=== PATIENT | female | born 1985 | race Caucasian/White ===

== ENCOUNTER 2016-09-13 05:40 | Inpatient (IN) | payer MEDICAID ==
[~2016-09-13] VITALS: Ht 160 cm; Wt 89.8 kg
[2016-09-13] MEDS ORDERED: PRENATAL LOW IR1 TA1 PO (08:00)
[2016-09-13] MEDS ORDERED: LACTATED RINGERS 1,000 ML IV SCH (08:00)
[2016-09-13] MEDS ORDERED: CITRIC ACID/SODIUM CITRATE 30 ML UDC PO SCH (08:07)
[2016-09-13 08:30] VITALS: BP 120/80
[2016-09-13] MEDS ORDERED: MICRONASE5 MG PO (09:37)
--- NOTE | 2016-09-13 10:24 | NUR ---
PATIENT HAS BEEN SCREENED AND CATEGORIZED LOW NUTRITION RISK. PATIENT WILL BE SEEN WITHIN 7 DAYS OF ADMISSION. 09/19/[address]
[2016-09-13] MEDS ORDERED: ePHEDrine 50 MG/ML VIAL ONE (10:42)
[2016-09-13] MEDS ORDERED: OXYTOCIN 10 UNITS/ML VIAL ONE ×2 (10:42→11:58)
[2016-09-13] MEDS ORDERED: ceFAZolin 1,000 MG VIAL ONE ×2 (10:42→10:57)
[2016-09-13] MEDS ORDERED: MORPHINE PRES FREE 10 MG/10 ML AMP IV ONE (10:52)
[2016-09-13] MEDS ORDERED: fentaNYL 0.05 MG/ML VIAL ONE (10:52)
[2016-09-13] MEDS ORDERED: NALBUPHINE 10 MG/ML AMP IVP PRN (11:10)
[2016-09-13] MEDS ORDERED: diphenhydrAMINE 50 MG/ML VIAL IVP PRN (11:10)
[2016-09-13] MEDS ORDERED: ONDANSETRON 4 MG/2 ML VIAL IVP PRN ×2 (11:10)
[2016-09-13] MEDS ORDERED: KETOROLAC 60 MG/2 ML VIAL IM PRN (11:10)
[2016-09-13] MEDS ORDERED: NALOXONE 0.4 MG/ML VIAL IVP PRN ×3 (11:10)
[2016-09-13] MEDS ORDERED: BLOOD GLUCOSE MONITORING 1 DEV DEV FS ONE (11:10)
[2016-09-13] MEDS ORDERED: MEASLES, MUMPS, AND RUBELLA 1 VIAL SQVAC PRN (13:30)
[2016-09-13] MEDS ORDERED: KETOROLAC 30 MG/ML VIAL IVP PRN (13:30)
[2016-09-13] MEDS ORDERED: HYDROmorphone 1 MG/ML AMP IVP PRN (13:30)
[2016-09-13] MEDS ORDERED: ONDANSETRON 4 MG/2 ML VIAL ONE (13:45)
[2016-09-13] MEDS ORDERED: OXYTOCIN 20 UNITS/LR PREMIX 1,000 ML IV ONE (13:45)
[2016-09-13] MEDS: OXYTOCIN 20 UNITS/LR PREMIX 1,000 ML IV SCH (15:25)
[2016-09-13] MEDS ORDERED: OXYTOCIN 20 UNITS/LR PREMIX 1,000 ML IV SCH (21:47)
[2016-09-14] MEDS: OXYTOCIN 20 UNITS/LR PREMIX 1,000 ML IV SCH ×2 (01:30→10:09)
[2016-09-14] MEDS ORDERED: oxyCODONE/APAP 5/325 MG 1 TAB TAB ONE (17:52)
[2016-09-14] MEDS ORDERED: ACETAMINOPHEN 325 MG TAB PO PRN (22:00)
[2016-09-15] MEDS ORDERED: BISACODYL 5 MG TABEC PO PRN (08:00)
[2016-09-15] MEDS ORDERED: DOCUSATE SODIUM 100 MG GELCAP PO PRN (08:00)
[2016-09-15] MEDS ORDERED: SIMETHICONE 80 MG TAB.CHEW PO PRN (08:00)
[2016-09-15] MEDS ORDERED: SODIUM PHOSPHATE 118 ML ENEM RC PRN (08:00)
[2016-09-16] MEDS: oxyCODONE/APAP 5/325 MG 1 TAB TAB PO PRN (01:29)
[2016-09-17] MEDS: oxyCODONE/APAP 5/325 MG 1 TAB TAB PO PRN (08:39)
== END 2016-09-17 14:30 | disposition home or self-care (01) | DRG 540 ==
LOC: MFCC 06:45
PROVIDERS: ADMIT Obstetrics & Gynecology; ATTEND Obstetrics & Gynecology
PROC: 0UL70ZZ Occlusion of Bilateral Fallopian Tubes, Open Approach (ICD-10-PCS; 2016-09-13)
PROC: 3E0234Z Introduction of Serum, Toxoid and Vaccine into Muscle, Percutaneous Approach (ICD-10-PCS; 2016-09-13)
PROC: 10D00Z1 Extraction of Products of Conception, Low, Open Approach (ICD-10-PCS; principal; 2016-09-13 11:00)
DX: O34.211 Maternal care for low transverse scar from previous cesarean delivery (principal); E66.9 Obesity, unspecified; O24.425 Gestational diabetes mellitus in childbirth, controlled by oral hypoglycemic drugs; O69.1XX0 Labor and delivery complicated by cord around neck, with compression, not applicable or unspecified; O99.214 Obesity complicating childbirth; Z37.0 Single live birth; Z3A.38 38 weeks gestation of pregnancy; Z30.2 Encounter for sterilization; Z68.35 Body mass index [BMI] 35.0-35.9, adult; Z23 Encounter for immunization